=== PATIENT | female | born 1935 | race Caucasian/White ===

== ENCOUNTER 2017-10-04 12:31 | Emergency (ER) | payer OTHER ==
[~2017-10-04] VITALS: Ht 160 cm; Wt 49.0 kg
[~2017-10-04 12:31] MED LIST: AMOX1TAB12 PO; ANTIVERT25 M1 PO; ATORVASTATIN CA20 MG; CEFTIN250 MG PO; CELEBREX100 MG PO; DICLOFENAC SODI50 MG PO; EVISTA60 MG; GLUMETZA1000 MG; INTESTINEX680 MG PO; LOSARTAN POTASS25 MG; LOVASTATIN20 MG; MIRALAX510 GM PO; MOTRIN800 MG PO; NEURONTIN300 MG; NEURONTIN300 MG PO; ORPH100T PO; PEPCID40 MG PO; PYRIDIUM DS200 MG PO; SEPTRA DS TABLE1 TAB PO; SINGULAIR10 MG; SKELAXIN800 MG PO; SYNTHROID75 MCG; TUSSI-PRES LIQ118 ML PO; ZANTAC150 MG PO
[2017-10-04] MEDS ORDERED: JANUMET XR 1001 EACH (13:01)
[2017-10-04] MEDS ORDERED: EVISTA60 MG (13:01)
== END 2017-10-04 21:13 | disposition home or self-care (01) ==
LOC: ER 12:31 → CPU-OBS 13:01 → ER 21:13
DX: M94.0 Chondrocostal junction syndrome [Tietze] (principal); R07.89 Other chest pain

== ENCOUNTER 2018-06-08 14:42 | Inpatient (IN) | payer OTHER ==
[~2018-06-08] VITALS: Ht 160 cm; Wt 48.1 kg
[~2018-06-08 14:42] MED LIST changes: +JANUMET XR 1001 EACH
--- NOTE | 2018-06-08 15:58 | NUR ---
PTE REFIERE DOLOR ABDOMINAL MAREOS Y VOMITOS SE SENTHIL S/V Y SE UBICA PACIENTE EN AREA DE OBSERVACION
--- NOTE | 2018-06-08 18:37 | NUR ---
SE RECIBE PTE ALERTA Y ORIENTADA X3, SE ORIENTA A PTE SOBRE TX MEDICO. SE LE REALIZAN MUESTRAS DE LABORATORIOS DYLLAN ORDENADOS.
== END 2018-06-11 10:38 | disposition home or self-care (01) | DRG 440 ==
LOC: ER 14:42 → MEDJ 23:08 → SURG 23:08 → SURH 06-09 16:49 → MEDJ 06-09 16:49
PROVIDERS: ADMIT Internal Medicine
PROC: BW40ZZZ Ultrasonography of Abdomen (ICD-10-PCS; principal; 2018-06-08)
PROC: BW21ZZZ Computerized Tomography (CT Scan) of Abdomen and Pelvis (ICD-10-PCS; 2018-06-08)
DX: K85.80 Other acute pancreatitis without necrosis or infection (principal); I73.89 Other specified peripheral vascular diseases; I10 Essential (primary) hypertension; E03.8 Other specified hypothyroidism; E11.9 Type 2 diabetes mellitus without complications

== ENCOUNTER 2019-02-09 12:11 | Emergency (ER) | payer OTHER ==
[~2019-02-09] VITALS: Ht 154.9 cm; Wt 45.4 kg
[2019-02-09] MEDS ORDERED: FORTAMET500 MG (12:34)
[2019-02-09] MEDS ORDERED: GLIMEPIRIDE1 MG (12:34)
[2019-02-09] MEDS ORDERED: KETO10TA2 PO (16:13)
[2019-02-09] MEDS ORDERED: LEVAQUIN500 MG PO (16:13)
== END 2019-02-09 16:27 | disposition home or self-care (01) ==
LOC: ER 12:11
DX: M79.642 Pain in left hand (principal); M25.532 Pain in left wrist; R06.02 Shortness of breath

== ENCOUNTER → 2019-04-28 | Emergency (ER) | payer OTHER ==
[~2019-04-28] VITALS: Ht 160 cm; Wt 44.9 kg
[~2019-04-28] MED LIST changes: +FORTAMET500 MG; +GLIMEPIRIDE1 MG; +KEFLEX500 MG PO; +KETO10TA2 PO; +LEVAQUIN500 MG PO
== END | disposition home or self-care (01) ==
LOC: ER 17:22
DX: N30.80 Other cystitis without hematuria (principal)

== ENCOUNTER 2019-12-29 13:37 | Emergency (ER) | payer OTHER ==
[~2019-12-29] VITALS: Ht 157.5 cm; Wt 42.6 kg
[2019-12-29] MEDS ORDERED: COZAAR25 MG (13:52)
[2019-12-29] MEDS ORDERED: FORTAMET1000 MG (13:52)
[2019-12-29] MEDS ORDERED: ATORVASTATIN CA40 MG (13:53)
[2019-12-29] MEDS ORDERED: ELIQUIS2.5 MG (13:53)
[2019-12-29] MEDS ORDERED: GLIMEPIRIDE1 M1 (13:54)
[2019-12-29] MEDS ORDERED: GLUCERNA237 M1 (13:55)
== END 2019-12-29 19:04 | disposition home or self-care (01) ==
LOC: ER 13:37
DX: N39.0 Urinary tract infection, site not specified (principal); B96.29 Other Escherichia coli [E. coli] as the cause of diseases classified elsewhere; R31.0 Gross hematuria

== ENCOUNTER 2021-01-16 11:58 | Emergency (ER) | payer OTHER ==
[~2021-01-16] VITALS: Ht 154.9 cm; Wt 44.0 kg
[~2021-01-16 11:58] MED LIST changes: +ATORVASTATIN CA40 MG; +COZAAR25 MG; +ELIQUIS2.5 MG; +FORTAMET1000 MG; +GLIMEPIRIDE1 M1; +GLUCERNA237 M1
[2021-01-16] MEDS ORDERED: MACRODANTIN100 M1 PO (15:58)
[2021-01-16] MEDS ORDERED: UTIX PO (15:58)
== END 2021-01-16 16:16 | disposition home or self-care (01) ==
LOC: ER 11:58
DX: N30.81 Other cystitis with hematuria (principal)

== ENCOUNTER 2021-04-27 21:32 | Emergency (ER) | payer OTHER ==
[~2021-04-27] VITALS: Ht 152.4 cm; Wt 43.1 kg
[~2021-04-27 21:32] MED LIST changes: +MACRODANTIN100 M1 PO; +UTIX PO
[2021-04-27] MEDS ORDERED: DICLOFENAC SODI75 MG PO (22:10)
== END 2021-04-27 22:15 | disposition home or self-care (01) ==
LOC: ER 21:32
DX: M79.641 Pain in right hand (principal); I10 Essential (primary) hypertension; E11.9 Type 2 diabetes mellitus without complications; Z79.84 Long term (current) use of oral hypoglycemic drugs

== ENCOUNTER 2021-05-18 14:33 | Emergency (ER) | payer OTHER ==
[~2021-05-18] VITALS: Ht 152.4 cm; Wt 44.9 kg
[~2021-05-18 14:33] MED LIST changes: +DICLOFENAC SODI75 MG PO
== END 2021-05-18 15:26 | disposition home or self-care (01) ==
LOC: ER 14:33
DX: N30.90 Cystitis, unspecified without hematuria (principal)

== ENCOUNTER 2021-06-30 11:51 | Emergency (ER) | payer OTHER ==
[~2021-06-30] VITALS: Ht 154.9 cm; Wt 45.4 kg
[2021-06-30] MEDS ORDERED: DRAMAMINE LESS25 MG PO (16:43)
== END 2021-06-30 17:10 | disposition home or self-care (01) ==
LOC: ER 11:51
DX: R42 Dizziness and giddiness (principal); E11.9 Type 2 diabetes mellitus without complications; Z79.84 Long term (current) use of oral hypoglycemic drugs; I10 Essential (primary) hypertension

== ENCOUNTER 2022-03-22 12:28 | Emergency (ER) | payer OTHER ==
[~2022-03-22] VITALS: Ht 160 cm; Wt 41.7 kg
[~2022-03-22 12:28] MED LIST changes: +DRAMAMINE LESS25 MG PO; +LEVOFLOXACIN750 MG PO
[2022-03-22] MEDS ORDERED: ADULT LOW DOSE81 M1 PO (13:07)
== END 2022-03-22 19:12 | disposition home or self-care (01) ==
LOC: ER 12:28
DX: N39.0 Urinary tract infection, site not specified (principal); I50.9 Heart failure, unspecified; E11.9 Type 2 diabetes mellitus without complications; E03.9 Hypothyroidism, unspecified; Z95.0 Presence of cardiac pacemaker

== ENCOUNTER 2022-05-11 21:05 | Emergency (ER) | payer OTHER ==
[~2022-05-11] VITALS: Ht 142.2 cm; Wt 43.1 kg
[~2022-05-11 21:05] MED LIST changes: +ADULT LOW DOSE81 M1 PO
[2022-05-11] MEDS ORDERED: BACTRIM DS TAB1 EACH PO (23:37)
== END 2022-05-11 23:46 | disposition home or self-care (01) ==
LOC: ER 21:05
DX: N39.0 Urinary tract infection, site not specified (principal); R30.0 Dysuria; R31.9 Hematuria, unspecified; I10 Essential (primary) hypertension

== ENCOUNTER 2022-08-07 09:19 | Emergency (ER) | payer OTHER ==
[~2022-08-07] VITALS: Ht 157.5 cm; Wt 43.1 kg
[~2022-08-07 09:19] MED LIST changes: +BACTRIM DS TAB1 EACH PO
[2022-08-07] MEDS ORDERED: CIPRO500 MG PO (13:26)
[2022-08-07] MEDS ORDERED: CEFPODOXIME PR200 MG PO (13:28)
== END 2022-08-07 13:50 | disposition home or self-care (01) ==
LOC: ER 09:19
DX: N30.00 Acute cystitis without hematuria (principal); R30.0 Dysuria; I11.9 Hypertensive heart disease without heart failure; I25.2 Old myocardial infarction